=== PATIENT | male | born 1990 | race Caucasian/White ===

== ENCOUNTER 2017-02-26 20:03 | Emergency (ER) | payer OTHER ==
[~2017-02-26] VITALS: Ht 167.6 cm; Wt 73.0 kg
[~2017-02-26 20:03] MED LIST: CLOT30CR24 TOP; DOXY100T20 PO; IBUP-1542 PO; TRAM50TA2 PO
[2017-02-26 20:09] VITALS: Ht 167.6 cm; Wt 73.0 kg
--- NOTE | 2017-02-26 21:27 | ERD ---
ER Documentation Chief Complaint Date/Time DATE: 02/26/17 TIME: 21:25 Chief Complaint abscess in pubic area (seen at [facility] today left AMA) HPI wound eval s/p I +D 48 hours ago, pt has not started ABX, . ROS All systems reviewed and are negative except as per history of present illness. Medications Home Meds Active Scripts Clotrimazole* (Clotrimazole* AF) 1% - 30 Gm Cream.gm., 1 APPLIC TOP BID for 7 Days, TUB Prov:ELKIN WELLINGTON PA-C 04/12/16 Doxycycline Hyclate* (Doxycycline Hyclate*) 100 Mg Tablet.dr, 100 MG PO BID for 7 Days, TAB Prov:ELKIN WELLINGTON PA-C 04/12/16 Tramadol HCl (Tramadol HCl) 50 Mg Tablet, 50 MG PO Q4 Y for PAIN, #20 TAB Prov:MARTA DELGADILLO SEm 01/10/16 Ibuprofen* (Motrin*) 600 Mg Tab, 600 MG PO Q6, #30 TAB Prov:MARTA DELGADILLO S. 01/10/16 Allergies Allergies: Coded Allergies: cefaclor (Verified Allergy, Unknown, rash, 04/12/16) PMhx/Soc History of Surgery: Yes (LLE Fx Surgery) Anesthesia Reaction: No Hx Neurological Disorder: No Hx Respiratory Disorders: No Hx Cardiac Disorders: No Hx Psychiatric Problems: No Hx Miscellaneous Medical Probl: Yes (Peritonsillar Abscess) Hx Alcohol Use: Yes (Social) Hx Substance Use: Yes (Meth) Hx Tobacco Use: Yes (5 sticks/day) Smoking Status: Current every day smoker Physical Exam Vitals Vital Signs Date Time Temp Pulse Resp B/P Pulse Ox O2 Delivery O2 Flow Rate FiO2 02/26/17 20:09 96.3 81 20 114/71 99 Vitals stable, triage notes reviewed Physical Exam Const: Well-appearing, dirty, well-hydrated, sleeping male patient no acute distress Head: Atraumatic Eyes: Normal Conjunctiva PERRLA, EOMI ENT: Normal External Ears, Nose and Mouth. Mucous membranes moist Neck: Resp: Respirations even and unlabored, no respiratory Cardio: Abd: Soft, non tender, non distended. Skin: 2 cm horizontal laceration with packing, removed without incident. Patient has yellow eschar, serous fluid surrounding erythema. No purulent drainage with manual pressure incision site is tender to palpation, warm to touch. Back: Ext: Neur: Awake and alert Psych: Normal Mood and Affect Results 24 hrs Current Medications Medications (Trade) Dose Ordered Sig/Pema Route PRN Reason Start Time Stop Time Status Last Admin Dose Admin Acetaminophen/ Hydrocodone Bitart 1 tab 1 tab ONCE ONCE PO 02/26/17 21:30 02/26/17 21:31 DC 02/26/17 21:39 Sodium Chloride 500 ml @ 500 mls/hr Q1H ONCE IV 02/26/17 21:30 02/26/17 22:29 DC 02/26/17 21:38 Clindamycin HCl/ Dextrose (Cleocin 900 Mg/ D5W (Pmx)) 50 ml @ 50 mls/hr ONCE IVPB 02/26/17 21:30 02/26/17 22:29 DC 02/26/17 21:51 Procedures/MDM This 26-year-old homeless male patient presents to emergency department dirty, with a dry dressing reports status post incision and drainage 48 hours ago at [facility]. Physical exam shows surrounding erythema, tenderness, with yellow eschar and serous. Patient has not started his antibiotic reports he had just gotten it today. Low suspicion for drug resistance. Patient is given 900 mg intravenous clindamycin, one [place] for pain. Patient receives 500 cc of normal saline, wound care with wet-to-dry dressing, patient instructed to return to emergency department in 48 hours for reevaluation. Take clindamycin orally as prescribed. Return to emergency department for fever, nausea, vomiting, redness spreading up toward the umbilicus. Leave dressing in place unless dressing becomes wet change immediately. Observe 1 daily for signs of infection which include increased pain, increased redness especially redness spreading towards your heart, post drainage or increased swelling. If there are any of these signs or if you are not sure return as soon as possible I feel the patient is stable for discharge at this time. I have discussed results, examination findings, the treatment plan with the patient and family present prior to discharge. Indications for emergent reevaluation, side effects of medication were also discussed. All questions were answered. Patient verbalizes understanding and agrees with plan of care. Departure Diagnosis: Primary Impression: Wound check, abscess Condition: Fair Patient Instructions: Caring for Your Wound Additional Instructions: Thank you for for coming to [facility] for your care today. Please ask your nurse or provider if you have questions about your care today and do not leave until all your questions have been answered. Please use any medications given as directed and follow-up with your doctor (or the doctor you were referred to) in the next 2-3 days. If you do not have a primary care doctor you may follow up at the [facility] (listed below). You may also use motrin and tylenol as needed for fever and/or pain unless instructed otherwise by your provider or nurse. Indications for more urgent follow-up have been discussed, but you may return to the Emergency Department at ANY time for any worrisome or worsening symptoms. If you have abdominal pain, please know that no test or exam you received is perfect and you should follow up within 8 hours for continued pain. If you had any imaging studies today, such as an X-Ray or CT Scan, these studies will be reviewed later by a radiologist. You will be called if there are important findings that were not identified today, so make sure the contact information you provided at registration is correct. If you received any narcotic pain control medicine today, such as Vicodin, Morphine or Dilaudid, your coordination and judgment may be affected for a number of hours. Please do not drive or operate heavy machinery, and you may want someone to assist you at home. If you were given a prescription for narcotic medication, be aware that it is very addictive- use sparingly and only if necessary. MING SHARP Feb 26, 2017 21:27
[2017-02-26] MEDS ORDERED: CLINDAMYCIN 900 MG/D5W (PMX) 50 ML IVPB SCH (21:30)
[2017-02-26] MEDS ORDERED: HYDROCODONE/APAP (5/325) TAB PO ONE (21:30)
[2017-02-26] MEDS ORDERED: SOD CHLORIDE 0.9% 500 ML IV ONE (21:30)
[2017-02-26 23:42] VITALS: BP 106/67; PULSE 63; RESP 16
== END 2017-02-26 23:43 | disposition home or self-care (01) ==
LOC: FTE 20:03
DX: Z48.01 Encounter for change or removal of surgical wound dressing (principal)
CPT/HCPCS: 96374; J7040; Z7502; Z7610